=== PATIENT | male | born 1950 | race African-American/Black ===

== ENCOUNTER 2016-09-11 10:06 | Inpatient (IN) | payer MEDICARE ==
[~2016-09-11] VITALS: Ht 177.8 cm; Wt 93.9 kg
[~2016-09-11 10:06] MED LIST: AMLO5TAB2 PO; BENA20TA2 PO; CLON0.1T PO; HYDR-3240 PO; INSU100C SQ-INSULIN; LEVEMIR; METF10002 PO; METO25TA35 PO; SIMV5TAB5 PO; SITA25TA PO; SUMA25TA3 PO; TRIA50CA PO
[2016-09-11] MEDS ORDERED: SODIUM CHLORIDE 0.9% 1,000 ML IV ONE (10:45)
[2016-09-11] MEDS ORDERED: SODIUM CHLORIDE 0.9% 1,000ML IVBOLUS ONE (11:00)
[2016-09-11] MEDS ORDERED: SODIUM CHLORIDE FLUSH 10ML SYR IVF ONE (11:00)
[2016-09-11] MEDS ORDERED: ACETAMINOPHEN 500 MG TABLET PO ONE (11:00)
[2016-09-11] MEDS ORDERED: ACETAMINOPHEN 500 MG TABLET ONE (11:00)
[2016-09-11 11:13] LABS: HEMATOCRIT 43.3 % (39.2-51.8); HEMOGLOBIN 14.3 g/dL (13.7-18.0); WHITE BLOOD COUNT 12.3 x10^3/uL (3.4-10)
[2016-09-11 11:22] LABS: RAPID INFLUENZA A Negative (Negative); RAPID INFLUENZA B Negative (Negative)
[2016-09-11 11:30] LABS: ASPARTATE AMINO TRANSFERASE 22 U/L (15-37); BLOOD UREA NITROGEN 15 mg/dL (7-18)
[2016-09-11 12:36] LABS: GLUCOSE, CSF 97 mg/dL (40-80)
[2016-09-11] MEDS ORDERED: OMNIPAQUE 350 MG/ML, 100ML BOTTLE ONE (12:38)
[2016-09-11 13:10] LABS: PATH.CAST-FLAG NOT PRESENT; SPERM-FLAG NOT PRESENT; SRC-FLAG NOT PRESENT; XTAL-FLAG NOT PRESENT; YLC-FLAG NOT PRESENT
[2016-09-11] MEDS ORDERED: SITA100T PO (14:30)
[2016-09-11] MEDS ORDERED: INSU100V13 SQ (14:30)
[2016-09-11] MEDS ORDERED: AMLO5TAB2 PO (14:30)
[2016-09-11] MEDS ORDERED: SODIUM CHLORIDE FLUSH 10ML SYR IVF PRN (14:30)
[2016-09-11] MEDS ORDERED: TRIA1CAP3 PO (14:30)
[2016-09-11] MEDS ORDERED: SIMV10TA3 PO (14:30)
[2016-09-11] MEDS ORDERED: INSU100I11 SQ (14:30)
[2016-09-11] MEDS ORDERED: SODIUM CHLORIDE 0.9% 1,000 ML IV SCH (15:13)
[2016-09-11] MEDS ORDERED: ONDANSETRON 2MG/ML, 2ML IVPush PRN (15:30)
[2016-09-11] MEDS ORDERED: LORazepam 2 MG/ML, 1ML IVPush PRN (15:30)
[2016-09-11] MEDS ORDERED: HYDROcodone/APAP 5/325 TABLET PO PRN (15:30)
[2016-09-11] MEDS ORDERED: morphine SULFATE 10 MG/ML, 1ML IVPush PRN (15:30)
[2016-09-11] MEDS ORDERED: DEXTROSE 50%, 50ML SYRINGE IVPush PRN (15:30)
[2016-09-11] MEDS ORDERED: DOCUSATE 100 MG CAPSULE PO PRN (15:30)
[2016-09-11] MEDS ORDERED: GLUCAGON 1 MG IM PRN (15:30)
[2016-09-11] MEDS ORDERED: DEXTROSE 4 GM TAB.CHEW PO PRN (15:30)
[2016-09-11] MEDS: INSULIN ASPART 100 UNITS/ML, PEN SQ-INSULIN SCH ×3 (16:00→22:36)
[2016-09-11] MEDS: HYDROcodone/APAP 5/325 TABLET PO PRN ×2 (18:14→22:46)
[2016-09-11 18:15] VITALS: BP 166/84
[2016-09-11 21:57] VITALS: BP 169/87
[2016-09-11] MEDS: SIMVASTATIN 10 MG TABLET PO SCH (22:34)
[2016-09-11] MEDS: METOPROLOL TARTRATE 25 MG TABLET PO SCH (22:35)
[2016-09-11] MEDS: INSULIN DETEMIR 100 UNITS/ML, PEN SQ-INSULIN SCH (22:35)
[2016-09-11] MEDS: BENAZEPRIL 20 MG TABLET PO SCH (22:36)
[2016-09-11] MEDS: SODIUM CHLORIDE FLUSH 10ML SYR IVF SCH (22:37)
[2016-09-12 02:00] VITALS: BP 163/70
[2016-09-12 05:33] LABS: HEMOGLOBIN 14.1 g/dL (13.7-18.0); WHITE BLOOD COUNT 11.2 x10^3/uL (3.4-10)
[2016-09-12 05:57] LABS: ASPARTATE AMINO TRANSFERASE 29 U/L (15-37); BLOOD UREA NITROGEN 12 mg/dL (7-18)
[2016-09-12 06:09] LABS: DIFF TOTAL CELLS COUNTED 100 CELL DIFF
[2016-09-12 06:11] LABS: VERIFY COUNTS? YES
[2016-09-12] MEDS: ACETAMINOPHEN 325 MG TABLET PO PRN (06:29)
[2016-09-12] MEDS: INSULIN ASPART 100 UNITS/ML, PEN SQ-INSULIN SCH ×6 (07:00→20:59)
[2016-09-12 07:14] VITALS: BP 182/90
[2016-09-12] MEDS: hydrALAzine 20 MG/ML, 1ML IVPush PRN (07:23)
[2016-09-12] MEDS: AMLODIPINE 5 MG TABLET PO SCH ×2 (09:00→09:18)
[2016-09-12] MEDS: SODIUM CHLORIDE FLUSH 10ML SYR IVF SCH ×2 (09:18→20:55)
[2016-09-12] MEDS: BENAZEPRIL 20 MG TABLET PO SCH ×2 (09:18→20:54)
[2016-09-12] MEDS: METOPROLOL TARTRATE 25 MG TABLET PO SCH ×2 (09:18→20:54)
[2016-09-12] MEDS ORDERED: AMOXICILLIN 500 MG CAPSULE PO SCH (09:30)
[2016-09-12] MEDS: CEFTRIAXONE PMX 2GM/50ML 50 ML IV SCH (11:01)
[2016-09-12] MEDS: KETOROLAC 30 MG/1 ML IVPush PRN (11:01)
[2016-09-12] MEDS: HYDROcodone/APAP 5/325 TABLET PO PRN ×2 (14:28→20:54)
[2016-09-12 14:34] VITALS: BP 161/80
[2016-09-12 19:37] VITALS: BP 191/91
[2016-09-12] MEDS: SIMVASTATIN 10 MG TABLET PO SCH (20:54)
[2016-09-12] MEDS: INSULIN DETEMIR 100 UNITS/ML, PEN SQ-INSULIN SCH (20:58)
[2016-09-12 21:02] VITALS: BP 166/91
[2016-09-13 02:37] VITALS: BP 178/95
[2016-09-13] MEDS: ACETAMINOPHEN 325 MG TABLET PO PRN ×2 (03:15→12:02)
[2016-09-13] MEDS: hydrALAzine 20 MG/ML, 1ML IVPush PRN ×2 (03:17→08:47)
[2016-09-13 05:15] LABS: HEMATOCRIT 45.3 % (39.2-51.8); HEMOGLOBIN 15.1 g/dL (13.7-18.0); WHITE BLOOD COUNT 8.8 x10^3/uL (3.4-10)
[2016-09-13 05:18] LABS: BLOOD UREA NITROGEN 13 mg/dL (7-18)
[2016-09-13] MEDS: HYDROcodone/APAP 5/325 TABLET PO PRN (07:16)
[2016-09-13] MEDS ORDERED: POTASSIUM CHLORIDE 20 MEQ TAB.ER.PRT PO ONE ×2 (07:30→09:00)
[2016-09-13 07:48] VITALS: BP 163/106
[2016-09-13] MEDS: CEFTRIAXONE PMX 2GM/50ML 50 ML IV SCH (08:46)
[2016-09-13] MEDS: INSULIN ASPART 100 UNITS/ML, PEN SQ-INSULIN SCH ×2 (08:47→11:25)
[2016-09-13] MEDS: METOPROLOL TARTRATE 25 MG TABLET PO SCH (08:48)
[2016-09-13] MEDS: SODIUM CHLORIDE FLUSH 10ML SYR IVF SCH (08:48)
[2016-09-13] MEDS: BENAZEPRIL 20 MG TABLET PO SCH (08:48)
[2016-09-13] MEDS ORDERED: AMOX500T PO (08:50)
[2016-09-13] MEDS ORDERED: HYDR-3240 PO (09:05)
[2016-09-13] MEDS ORDERED: DIPHENHYDRAMINE 25 MG CAPSULE PO PRN (12:00)
[2016-09-13] MEDS: KETOROLAC 30 MG/1 ML IVPush PRN (12:11)
== END 2016-09-13 14:15 | disposition home or self-care (01) | DRG 152 ==
LOC: ED 10:27 → EDIP 14:11 → 3NE 16:08
PROVIDERS: ADMIT Internal Medicine; ATTEND Internal Medicine
PROC: 009U3ZX Drainage of Spinal Canal, Percutaneous Approach, Diagnostic (ICD-10-PCS; principal; 2016-09-11)
DX: J02.0 Streptococcal pharyngitis (principal); N17.0 Acute kidney failure with tubular necrosis; I11.9 Hypertensive heart disease without heart failure; E78.5 Hyperlipidemia, unspecified; E11.9 Type 2 diabetes mellitus without complications; E86.9 Volume depletion, unspecified; R19.7 Diarrhea, unspecified; M54.5 Low back pain; J47.9 Bronchiectasis, uncomplicated; M43.6 Torticollis; N40.0 Benign prostatic hyperplasia without lower urinary tract symptoms; Z79.4 Long term (current) use of insulin; Z82.3 Family history of stroke; Z82.49 Family history of ischemic heart disease and other diseases of the circulatory system; Z83.3 Family history of diabetes mellitus; Z88.6 Allergy status to analgesic agent
CPT/HCPCS: 36415; 62270; 71010; 74177; 80048; 80053; 81001; 82945; 82962; 83036; 83605; 83735; 84100; 84157; 85025; 85610; 85730; 87040; 87070; 87081; 87147; 87205; 87252; 87400; 87880; 89051; 96360; 96361; J0696; J1815; J1885; Q9967; J0360; J7030; Q0163

== ENCOUNTER 2017-11-21 15:13 | Emergency (ER) | payer MEDICARE ==
[~2017-11-21] VITALS: Ht 175.3 cm; Wt 94.2 kg
[~2017-11-21 15:13] MED LIST changes: -AMLO5TAB2 PO; +AMLO5TAB7 PO; +AMOX500T PO; -BENA20TA2 PO; +BENA20TA4 PO; +INSU100I11 SQ; +INSU100V13 SQ; +SIMV10TA3 PO; +SITA100T PO; +TRIA1CAP3 PO
[2017-11-21] MEDS ORDERED: SODIUM CHLORIDE 0.9% 1,000ML IVBOLUS ONE (15:30)
[2017-11-21] MEDS ORDERED: SODIUM CHLORIDE FLUSH 10ML SYR IVF ONE (15:30)
[2017-11-21] MEDS ORDERED: ONDANSETRON ODT 4 MG ONE (15:50)
[2017-11-21] MEDS ORDERED: MORPHINE SULFATE 4 MG/ML, 1ML ONE ×2 (15:51→17:35)
[2017-11-21 15:52] LABS: BASOPHILS # (AUTO) 0.04 x10^3/uL (0-0.1); BASOPHILS % (AUTO) 1 % (0-1); EOSINOPHILS # (AUTO) 0.25 x10^3/uL (0-0.4); EOSINOPHILS % (AUTO) 3 % (1-7); LYMPHOCYTES # (AUTO) 1.91 x10^3/uL (1-3.4); LYMPHOCYTES % (AUTO) 25 % (22-44); MD NO; MEAN CORPUSCULAR HEMOGLOBIN 29.1 pg (27.5-34.5); MEAN CORPUSCULAR HGB CONC 33.6 g/dL (33.2-36.2); MEAN CORPUSCULAR VOLUME 86.6 fL (81-97); MEAN PLATELET VOLUME 9.1 fL (7.4-10.4); MONOCYTES # (AUTO) 0.69 x10^3/uL (0.2-0.8); MONOCYTES % (AUTO) 9 % (2-9); NEUTROPHILS # (AUTO) 4.72 x10^3/uL (1.8-6.8); NEUTROPHILS % (AUTO) 62 % (42-75); PLATELET COUNT 198 x10^3/uL (130-400); RED BLOOD COUNT 4.92 x10^6/uL (4.38-5.82); RED CELL DISTRIBUTION WIDTH 14.4 % (9.4-14.8)
[2017-11-21] MEDS: MORPHINE SULFATE 4 MG/ML, 1ML IVPush PRN ×2 (15:56→18:15)
[2017-11-21] MEDS ORDERED: ONDANSETRON ODT 4 MG PO ONE (16:00)
[2017-11-21 16:01] LABS: ALANINE AMINOTRANSFERASE 28 U/L (12-78); ALBUMIN 3.6 g/dL (3.4-5.0); ANION GAP 4 mmol/L (5-15); CALCIUM 8.7 mg/dL (8.5-10.1); CHLORIDE 104 mmol/L (98-107); CREATININE 1.15 mg/dL (0.7-1.3)
[2017-11-21 16:03] LABS: ALKALINE PHOSPHATASE 91 U/L (45-117); BILIRUBIN,TOTAL 0.5 mg/dL (0.2-1.0); TOTAL PROTEIN 7.9 g/dL (6.4-8.2)
[2017-11-21 17:59] LABS: MICROSCOPIC INDICATED
[2017-11-21 18:09] LABS: CULTURE INDICATED? NO
[2017-11-21 19:59] VITALS: BP 172/85
== END 2017-11-21 20:03 | disposition home or self-care (01) ==
LOC: ED 16:02
DX: K85.00 Idiopathic acute pancreatitis without necrosis or infection (principal); R10.13 Epigastric pain; I10 Essential (primary) hypertension; E11.9 Type 2 diabetes mellitus without complications; Z88.6 Allergy status to analgesic agent
CPT/HCPCS: 36415; 74177; 76700; 80053; 81001; 83690; 85025; 93005; 96374; 96376; 99285; J7030; Q0162

== ENCOUNTER 2017-11-22 11:29 | Emergency (ER) | payer MEDICARE ==
[~2017-11-22] VITALS: Ht 175.3 cm; Wt 93.4 kg
[2017-11-22] MEDS ORDERED: FAMOTIDINE 20 MG TABLET PO ONE (12:00)
[2017-11-22] MEDS ORDERED: FAMOTIDINE 20 MG TABLET ONE (12:02)
[2017-11-22 14:34] VITALS: BP 148/88
== END 2017-11-22 14:35 | disposition home or self-care (01) ==
LOC: ED 13:37
DX: L50.9 Urticaria, unspecified (principal); I10 Essential (primary) hypertension; E11.9 Type 2 diabetes mellitus without complications; Z88.6 Allergy status to analgesic agent
CPT/HCPCS: 99283; J7512

== ENCOUNTER 2017-12-07 18:06 | Emergency (ER) | payer MEDICARE | END 2017-12-07 18:44 | disposition left against medical advice (07) | LOC: ED 18:42 | DX: I10 Essential (primary) hypertension (principal); Z53.21 Procedure and treatment not carried out due to patient leaving prior to being seen by health care provider ==

== ENCOUNTER 2018-03-31 19:26 | Emergency (ER) | payer MEDICARE ==
[~2018-03-31] VITALS: Ht 177.8 cm; Wt 100.2 kg
[~2018-03-31 19:26] MED LIST changes: +AMLO-150 PO; -AMLO5TAB7 PO; -BENA20TA4 PO; +BENA20TA54 PO; -CLON0.1T PO; +CLON0.1T22 PO; +SIMV5TAB14 PO; -SIMV5TAB5 PO
[2018-03-31 19:34] VITALS: BP 162/101
--- NOTE | 2018-03-31 19:48 | NUR ---
PT HERE WITH R SHOULDER PAIN, STATES THIS HAS BEEN HURTING FOR TWO DAYS, BELIEVES FROM SHOVELLING SNOW.
== END 2018-03-31 20:58 | disposition home or self-care (01) ==
LOC: ED 20:45
DX: M75.31 Calcific tendinitis of right shoulder (principal); M19.011 Primary osteoarthritis, right shoulder
CPT/HCPCS: 99283

== ENCOUNTER 2018-04-18 13:35 | Inpatient (IN) | payer MEDICARE ==
[~2018-04-18] VITALS: Ht 175.3 cm; Wt 93.6 kg
--- NOTE | 2018-04-18 13:54 | NUR ---
TO RM 24. BILATERAL LEG CRAMPS STARTED TODAY. MD EVALUATING PT
[2018-04-18] MEDS ORDERED: DIAZEPAM 5 MG TABLET PO ONE (14:00)
[2018-04-18] MEDS ORDERED: HYDR12.517 PO (14:01)
[2018-04-18] MEDS ORDERED: DIAZEPAM 5 MG TABLET ONE (14:06)
[2018-04-18 14:26] LABS: BASOPHILS # (AUTO) 0.03 x10^3/uL (0-0.1); BASOPHILS % (AUTO) 0 % (0-1); EOSINOPHILS # (AUTO) 0.04 x10^3/uL (0-0.4); EOSINOPHILS % (AUTO) 0 % (1-7); LYMPHOCYTES # (AUTO) 1.47 x10^3/uL (1-3.4); LYMPHOCYTES % (AUTO) 17 % (22-44); MD NO; MEAN CORPUSCULAR HEMOGLOBIN 28.8 pg (27.5-34.5); MEAN CORPUSCULAR HGB CONC 33.3 g/dL (33.2-36.2); MEAN CORPUSCULAR VOLUME 86.5 fL (81-97); MEAN PLATELET VOLUME 8.7 fL (7.4-10.4); MONOCYTES # (AUTO) 0.77 x10^3/uL (0.2-0.8); MONOCYTES % (AUTO) 9 % (2-9); NEUTROPHILS # (AUTO) 6.54 x10^3/uL (1.8-6.8); NEUTROPHILS % (AUTO) 74 % (42-75); PLATELET COUNT 203 x10^3/uL (130-400); RED BLOOD COUNT 5.47 x10^6/uL (4.38-5.82); RED CELL DISTRIBUTION WIDTH 15.4 % (9.4-14.8)
[2018-04-18 14:34] LABS: ALBUMIN 3.9 g/dL (3.4-5.0); ANION GAP 5 mmol/L (5-15); CALCIUM 8.7 mg/dL (8.5-10.1); CHLORIDE 104 mmol/L (98-107); CREATININE 1.22 mg/dL (0.7-1.3)
--- NOTE | 2018-04-18 14:51 | NUR ---
TASK RN: PTS BP IS ELEVATED AT THIS TIME, MD NOTIFIED OF MANUAL BP. PT GIVEN 0.1MG CLONIDINE PO.
[2018-04-18] MEDS ORDERED: LABETALOL 5MG/ML, 20ML IVPush ONE (15:30)
--- NOTE | 2018-04-18 15:47 | NUR ---
STATES PT SAYS HE HAS HAD INTERMITTENT CP THE LAST FEW WEEKS. EKG DONE AND IV ESTABLISHED FOR ANTIHYPERTENSIVE. LABETOLOL REQUESTED FROM PHARMACY
--- NOTE | 2018-04-18 16:09 | NUR ---
MEDICATED WITH LABETOLOL. PT C/O RIGHT LEG AND BACK CRAMPING. RUBBED LEG IN ATTEMPT TO PROVIDE RELIEF
[2018-04-18 16:28] LABS: TROPONIN I < 0.015 ng/mL (0.000-0.045)
[2018-04-18] MEDS ORDERED: LABETALOL 5MG/ML, 20ML IVPush STA (16:58)
[2018-04-18] MEDS ORDERED: ZOLPIDEM 5MG TABLET PO PRN (17:30)
[2018-04-18] MEDS ORDERED: POLYETHYLENE GLYCOL 17 GM PACKET PO PRN (17:30)
[2018-04-18] MEDS ORDERED: ONDANSETRON 2MG/ML, 2ML IVPush PRN (17:30)
[2018-04-18] MEDS ORDERED: ONDANSETRON ODT 4 MG PO PRN (17:30)
[2018-04-18] MEDS ORDERED: ENALAPRILAT 1.25 MG/ML, 2ML IVPush PRN (17:30)
[2018-04-18] MEDS ORDERED: HYDROcodone/APAP 5/325 TABLET PO PRN (17:30)
[2018-04-18] MEDS ORDERED: BISACODYL 10 MG SUPP PR PRN (17:30)
[2018-04-18] MEDS ORDERED: LABETALOL 5MG/ML, 20ML IVPush PRN (17:30)
[2018-04-18] MEDS ORDERED: BACLOFEN 10 MG TABLET PO PRN (17:30)
[2018-04-18] MEDS ORDERED: ACETAMINOPHEN 325 MG TABLET PO PRN (17:30)
[2018-04-18] MEDS ORDERED: DOCUSATE 100 MG CAPSULE PO PRN (17:30)
--- NOTE | 2018-04-18 17:42 | NUR ---
RPT TO JJ DYKES. MADE AWARE OF CURRENT BP. JJ CONTACTED HOSPITALIST TO MAKE CERTAIN OK FOR TELE. JJ HARRISON MD STATES OK TO GO TO TELE.
[2018-04-18 17:46] LABS: HCT (SEDRATE) 47.9 % (39.2-51.8)
[2018-04-18 18:01] LABS: FREE T4 (FREE THYROXINE) 0.83 ng/dL (0.76-1.46); TROPONIN I < 0.015 ng/mL (0.000-0.045)
[2018-04-18 18:34] LABS: HEMOGLOBIN A1C 8.9 % (4.2-6.3)
[2018-04-18 18:45] VITALS: BP 175/115
[2018-04-18] MEDS: morphine SULFATE 10 MG/ML, 1ML IVPush PRN ×2 (18:47→22:00)
[2018-04-18 20:23] VITALS: BP 177/104
[2018-04-18] MEDS ORDERED: SIMVASTATIN 5 MG TABLET ONE (20:26)
[2018-04-18] MEDS: hydrALAzine 20 MG/ML, 1ML IVPush PRN (20:30)
[2018-04-18] MEDS: INSULIN LISPRO 100 UNITS/ML, PEN SQ-INSULIN SCH (21:25)
[2018-04-18] MEDS: ENOXAPARIN 40 MG/0.4 ML SQ SCH (21:25)
[2018-04-18] MEDS: INSULIN GLARGINE 100 UNITS/ML, PEN SQ-INSULIN SCH (21:25)
[2018-04-18] MEDS: SIMVASTATIN 10 MG TABLET PO SCH (21:26)
[2018-04-18] MEDS: METOPROLOL TARTRATE 25 MG TABLET PO SCH (21:26)
[2018-04-18] MEDS: BENAZEPRIL 20 MG TABLET PO SCH (21:26)
[2018-04-18 23:19] LABS: TROPONIN I < 0.015 ng/mL (0.000-0.045)
[2018-04-19 02:20] VITALS: BP 177/96
[2018-04-19] MEDS: hydrALAzine 20 MG/ML, 1ML IVPush PRN (02:36)
[2018-04-19 03:23] VITALS: BP 166/94
[2018-04-19 05:51] LABS: ANION GAP 7 mmol/L (5-15); CALCIUM 8.5 mg/dL (8.5-10.1); CHLORIDE 105 mmol/L (98-107)
[2018-04-19 05:57] LABS: CHOL/HDL RATIO 3.3; CHOLESTEROL, TOTAL 167 mg/dL (140-239); CREATININE 1.04 mg/dL (0.7-1.3); HDL CHOL % 30 % (26-37); HDL CHOLESTEROL (DIRECT) 50 mg/dL (40-60); LDL CHOLESTEROL,CALCULATED 87 mg/dL (54-169); LDL/HDL RATIO 1.7 (0.5-3.0); TRIGLYCERIDES 151 mg/dL (50-200); VLDL CHOLESTEROL 30 mg/dL (0-25)
[2018-04-19 06:03] LABS: BASOPHILS # (AUTO) 0.03 x10^3/uL (0-0.1); BASOPHILS % (AUTO) 0 % (0-1); EOSINOPHILS # (AUTO) 0.05 x10^3/uL (0-0.4); EOSINOPHILS % (AUTO) 1 % (1-7); LYMPHOCYTES # (AUTO) 2.17 x10^3/uL (1-3.4); LYMPHOCYTES % (AUTO) 21 % (22-44); MD NO; MEAN CORPUSCULAR HEMOGLOBIN 29.1 pg (27.5-34.5); MEAN CORPUSCULAR HGB CONC 33.2 g/dL (33.2-36.2); MEAN CORPUSCULAR VOLUME 87.5 fL (81-97); MEAN PLATELET VOLUME 8.9 fL (7.4-10.4); MONOCYTES # (AUTO) 0.67 x10^3/uL (0.2-0.8); MONOCYTES % (AUTO) 7 % (2-9); NEUTROPHILS # (AUTO) 7.44 x10^3/uL (1.8-6.8); NEUTROPHILS % (AUTO) 72 % (42-75); PLATELET COUNT 203 x10^3/uL (130-400); RED BLOOD COUNT 5.58 x10^6/uL (4.38-5.82); RED CELL DISTRIBUTION WIDTH 15.3 % (9.4-14.8)
[2018-04-19 07:30] VITALS: BP 179/105
[2018-04-19] MEDS: PANTOPROZOLE 40MG TABLET PO SCH (08:19)
[2018-04-19] MEDS: METOPROLOL TARTRATE 25 MG TABLET PO SCH ×2 (08:19→20:30)
[2018-04-19] MEDS: BENAZEPRIL 20 MG TABLET PO SCH ×2 (08:20→20:29)
[2018-04-19] MEDS: HYDROCHLOROTHIAZIDE 12.5 MG CAPSULE PO SCH (08:20)
[2018-04-19] MEDS: AMLODIPINE 5 MG TABLET PO SCH (08:20)
[2018-04-19] MEDS ORDERED: REGADENOSON 0.4 MG/5 ML SYRINGE ONE (09:01)
[2018-04-19] MEDS: metFORMIN 500 MG TABLET PO SCH ×2 (12:38→17:47)
[2018-04-19] MEDS: INSULIN LISPRO 100 UNITS/ML, PEN SQ-INSULIN SCH ×2 (12:38→20:31)
[2018-04-19] MEDS: LINAGLIPTIN 5 MG TAB PO SCH (12:38)
[2018-04-19 13:54] VITALS: BP 177/88
[2018-04-19] MEDS ORDERED: SIMVASTATIN 5 MG TABLET ONE (20:10)
[2018-04-19 20:26] VITALS: BP 162/94
[2018-04-19] MEDS: ENOXAPARIN 40 MG/0.4 ML SQ SCH (20:30)
[2018-04-19] MEDS: SIMVASTATIN 10 MG TABLET PO SCH (20:30)
[2018-04-19] MEDS: INSULIN GLARGINE 100 UNITS/ML, PEN SQ-INSULIN SCH (20:32)
[2018-04-20 02:45] VITALS: BP 155/88
[2018-04-20 06:05] LABS: BASOPHILS # (AUTO) 0.03 x10^3/uL (0-0.1); BASOPHILS % (AUTO) 0 % (0-1); EOSINOPHILS # (AUTO) 0.05 x10^3/uL (0-0.4); EOSINOPHILS % (AUTO) 1 % (1-7); LYMPHOCYTES # (AUTO) 2.28 x10^3/uL (1-3.4); LYMPHOCYTES % (AUTO) 25 % (22-44); MD NO; MEAN CORPUSCULAR HEMOGLOBIN 29.3 pg (27.5-34.5); MEAN CORPUSCULAR HGB CONC 33.7 g/dL (33.2-36.2); MEAN CORPUSCULAR VOLUME 86.9 fL (81-97); MEAN PLATELET VOLUME 8.6 fL (7.4-10.4); MONOCYTES # (AUTO) 0.71 x10^3/uL (0.2-0.8); MONOCYTES % (AUTO) 8 % (2-9); NEUTROPHILS # (AUTO) 6.27 x10^3/uL (1.8-6.8); NEUTROPHILS % (AUTO) 67 % (42-75); PLATELET COUNT 194 x10^3/uL (130-400); RED BLOOD COUNT 5.28 x10^6/uL (4.38-5.82); RED CELL DISTRIBUTION WIDTH 15.4 % (9.4-14.8)
[2018-04-20 06:19] LABS: CALCIUM 8.2 mg/dL (8.5-10.1); CHLORIDE 104 mmol/L (98-107)
[2018-04-20 06:23] LABS: CREATININE 1.18 mg/dL (0.7-1.3)
[2018-04-20 06:57] LABS: ANION GAP 8 mmol/L (5-15)
[2018-04-20] MEDS: PANTOPROZOLE 40MG TABLET PO SCH (08:08)
[2018-04-20 09:25] VITALS: BP 155/90
[2018-04-20] MEDS: HYDROCHLOROTHIAZIDE 12.5 MG CAPSULE PO SCH (09:36)
[2018-04-20] MEDS: METOPROLOL TARTRATE 25 MG TABLET PO SCH (09:36)
[2018-04-20] MEDS: metFORMIN 500 MG TABLET PO SCH ×2 (09:36→17:10)
[2018-04-20] MEDS: INSULIN LISPRO 100 UNITS/ML, PEN SQ-INSULIN SCH (09:36)
[2018-04-20] MEDS: AMLODIPINE 5 MG TABLET PO SCH (09:37)
[2018-04-20] MEDS: BENAZEPRIL 20 MG TABLET PO SCH (09:37)
[2018-04-20] MEDS: LINAGLIPTIN 5 MG TAB PO SCH (09:37)
[2018-04-20 13:27] VITALS: BP 154/90
[2018-04-20 13:30] VITALS: BP 147/90
[2018-04-20] MEDS ORDERED: HYDR-3343 PO (17:43)
[2018-04-20] MEDS ORDERED: ACET325T14 PO (17:43)
== END 2018-04-20 18:30 | disposition home or self-care (01) | DRG 313 ==
LOC: ED 16:25 → EDIP 16:51 → 5SO 18:18
PROVIDERS: ADMIT Hospitalist; ATTEND Hospitalist
DX: R07.89 Other chest pain (principal); M79.604 Pain in right leg; E11.9 Type 2 diabetes mellitus without complications; I10 Essential (primary) hypertension; Z82.49 Family history of ischemic heart disease and other diseases of the circulatory system; Z83.3 Family history of diabetes mellitus; Z88.6 Allergy status to analgesic agent; Z91.048 Other nonmedicinal substance allergy status; M79.605 Pain in left leg
CPT/HCPCS: 0399T; 36415; 71045; 78452; 80048; 80061; 82040; 82962; 83036; 84439; 84443; 84484; 85025; 85651; 93005; 93017; 93306; 96374; 99285; G0378; J1650; J2785; A9502; C9898; J0360; J1815; J2270

== ENCOUNTER 2018-08-13 17:47 | Emergency (ER) | payer MEDICARE ==
[~2018-08-13] VITALS: Ht 175.3 cm; Wt 55.9 kg
[~2018-08-13 17:47] MED LIST changes: +ACET325T14 PO; +HYDR-3343 PO; +HYDR12.517 PO
[2018-08-13 18:22] VITALS: BP 185/95
[2018-08-13] MEDS ORDERED: HYDROcodone/APAP 5/325 TABLET ONE (19:12)
[2018-08-13] MEDS ORDERED: HYDROcodone/APAP 5/325 TABLET PO ONE (19:30)
== END 2018-08-13 19:47 | disposition home or self-care (01) ==
LOC: ED 18:58
DX: S40.011A Contusion of right shoulder, initial encounter (principal); M19.90 Unspecified osteoarthritis, unspecified site; I10 Essential (primary) hypertension; E11.9 Type 2 diabetes mellitus without complications; V29.88XA Motorcycle rider (driver) (passenger) injured in other specified transport accidents, initial encounter; Y93.89 Activity, other specified; Y92.410 Unspecified street and highway as the place of occurrence of the external cause; Y99.8 Other external cause status
CPT/HCPCS: 99283

== ENCOUNTER 2019-01-13 17:57 | Emergency (ER) | payer MEDICARE ==
[~2019-01-13] VITALS: Ht 177.8 cm; Wt 96.2 kg
[~2019-01-13 17:57] MED LIST changes: +ATOR40TA78 PO
--- NOTE | 2019-01-13 18:28 | NUR ---
PT C/O RLQ STABBING PAIN X2 WEEKS FOLLOWING YARD WORK THE DAY BEFORE. PT STATES PAIN DECREASES WHEN PT RESTS. PAIN HAS PROGRESSIVELY GOTTEN WORSE AND SEVERE PAIN TODAY WHILE AT WORK. LAST TIME EATEN 1630. CONNECTED TO MONITORING. CALL LIGHT IN REACH. AWAITING ORDERS AT THIS TIME.
--- NOTE | 2019-01-13 18:47 | NUR ---
PT AMBULATED TO RESTROOM WITH STEADY GAIT TO PROVIDE URINE SAMPLE. UA COLLECTED AND SENT TO LAB. LAB AT BEDSIDE.
[2019-01-13 19:04] LABS: BASOPHILS # (AUTO) 0.06 x10^3/uL (0-0.1); BASOPHILS % (AUTO) 1 % (0-1); EOSINOPHILS # (AUTO) 0.11 x10^3/uL (0-0.4); EOSINOPHILS % (AUTO) 2 % (1-7); LYMPHOCYTES # (AUTO) 1.97 x10^3/uL (1-3.4); LYMPHOCYTES % (AUTO) 28 % (22-44); MD NO; MEAN CORPUSCULAR HGB CONC 32.6 g/dL (33.2-36.2); MEAN CORPUSCULAR VOLUME 89.2 fL (81-97); MEAN PLATELET VOLUME 9.3 fL (7.4-10.4); MONOCYTES # (AUTO) 0.62 x10^3/uL (0.2-0.8); MONOCYTES % (AUTO) 9 % (2-9); NEUTROPHILS # (AUTO) 4.39 x10^3/uL (1.8-6.8); NEUTROPHILS % (AUTO) 61 % (42-75); PLATELET COUNT 213 x10^3/uL (130-400); RED BLOOD COUNT 4.85 x10^6/uL (4.38-5.82); RED CELL DISTRIBUTION WIDTH 14.9 % (9.4-14.8)
[2019-01-13 19:12] LABS: ALANINE AMINOTRANSFERASE 50 U/L (12-78); ALBUMIN 3.6 g/dL (3.4-5.0); ANION GAP 8 mmol/L (5-15); CALCIUM 8.9 mg/dL (8.5-10.1); CHLORIDE 103 mmol/L (98-107); CREATININE 1.45 mg/dL (0.7-1.3)
[2019-01-13 19:15] LABS: ALKALINE PHOSPHATASE 73 U/L (45-117); BILIRUBIN,TOTAL 0.4 mg/dL (0.2-1.0); TOTAL PROTEIN 7.4 g/dL (6.4-8.2)
[2019-01-13 19:21] LABS: MICROSCOPIC AUTO
[2019-01-13 19:28] LABS: CULTURE INDICATED? NO
--- NOTE | 2019-01-13 19:44 | NUR ---
PT TO CT VIA [facility].
[2019-01-13] MEDS ORDERED: SODIUM CHLORIDE FLUSH 10ML SYR IVF ONE (20:00)
--- NOTE | 2019-01-13 20:24 | NUR ---
BP 190/92. PT STATES HE USUALLY TAKES SEVERAL MEDS FOR BP IN THE EVENING. ERP NOTIFIED.
--- NOTE | 2019-01-13 20:37 | NUR ---
ERP AT FOR RECHECK NOW.
[2019-01-13] MEDS ORDERED: OXYcodone/APAP 5/325MG TABLET ONE (20:51)
[2019-01-13 20:56] VITALS: BP 188/110
[2019-01-13] MEDS ORDERED: OXYcodone/APAP 5/325MG TABLET PO ONE (21:00)
--- NOTE | 2019-01-13 21:04 | NUR ---
PT MEDICATED PER ORDERS. STATES HIS WILL PICK HIM UP. Addendum: 01/13/19 at 2105 by DICKSONON D/C INSTRUCTIONS, MEDS & F/U APPT RV'WD WITH PT. RX GIVEN X1. COPY OF CT RESULT PROVIDED TO PT.
== END 2019-01-13 21:12 | disposition home or self-care (01) ==
LOC: ED 18:16
DX: S39.013A Strain of muscle, fascia and tendon of pelvis, initial encounter (principal); E11.9 Type 2 diabetes mellitus without complications; I10 Essential (primary) hypertension; M19.90 Unspecified osteoarthritis, unspecified site; Z87.891 Personal history of nicotine dependence; X50.9XXA Other and unspecified overexertion or strenuous movements or postures, initial encounter; Y93.89 Activity, other specified; Y92.89 Other specified places as the place of occurrence of the external cause; Y99.8 Other external cause status
CPT/HCPCS: 36415; 74176; 80053; 81001; 83690; 85025; 99284

== ENCOUNTER 2019-02-10 16:26 | Emergency (ER) | payer MEDICARE ==
[~2019-02-10] VITALS: Ht 175.3 cm; Wt 96.1 kg
[2019-02-10 16:27] VITALS: BP 171/87
--- NOTE | 2019-02-10 18:06 | NUR ---
Informed by Jo from Registration that patient approached the Registration window and stated "Bye I am leaving." Registration attempted to have patient sign AMA form and patient refused and walked out of the ED.
--- NOTE | 2019-02-10 18:07 | NUR ---
CALL CENTER OPERATIONS MANAGER: PT INFORMED ADMITTING THAT HE WAS LEAVING AND REFUSED TO SIGN AMA FORM
--- NOTE | 2019-02-10 18:14 | NUR ---
Ash sprague in [facility] - 02/10/19 at 1817 by JILLIAN PENSION ADVISER: PT AMBULATORY TO ROOM FROM [place]
== END 2019-02-10 18:18 | disposition left against medical advice (07) ==
LOC: ED 18:07
DX: K46.9 Unspecified abdominal hernia without obstruction or gangrene (principal); Z53.21 Procedure and treatment not carried out due to patient leaving prior to being seen by health care provider

== ENCOUNTER → 2019-03-13 | Outpatient (CLI) | payer MEDICARE ==
[~2019-03-13] MED LIST changes: +SIMV10TA18 PO; -SIMV10TA3 PO
== END | disposition home or self-care (01) ==
LOC: CFH 11:35
PROVIDERS: ATTEND Internal Medicine
DX: J47.9 Bronchiectasis, uncomplicated (principal)
CPT/HCPCS: 71250

== ENCOUNTER 2019-07-26 17:49 | Emergency (ER) | payer MEDICARE ==
[~2019-07-26] VITALS: Ht 177.8 cm; Wt 96.8 kg
--- NOTE | 2019-07-26 18:18 | NUR ---
Assumed care of patient. C/O stabbing non radiating left sided CP. NAD. Denies SOB, palpitations, dizziness. IV started. EKG and repeat EKG done. Placed on NIBP, pulse ox and vehicle monitor technician. Will continue to monitor.
[2019-07-26] MEDS ORDERED: SODIUM CHLORIDE FLUSH 10ML SYR IVF ONE (18:30)
[2019-07-26 18:32] LABS: BASOPHILS # (AUTO) 0.03 x10^3/uL (0-0.1); BASOPHILS % (AUTO) 0 % (0-1); EOSINOPHILS # (AUTO) 0.16 x10^3/uL (0-0.4); EOSINOPHILS % (AUTO) 2 % (1-7); LYMPHOCYTES # (AUTO) 1.55 x10^3/uL (1-3.4); LYMPHOCYTES % (AUTO) 22 % (22-44); MD NO; MEAN CORPUSCULAR HEMOGLOBIN 28.6 pg (27.5-34.5); MEAN CORPUSCULAR HGB CONC 32.9 g/dL (33.2-36.2); MEAN CORPUSCULAR VOLUME 86.8 fL (81-97); MEAN PLATELET VOLUME 9.3 fL (7.4-10.4); MONOCYTES # (AUTO) 0.75 x10^3/uL (0.2-0.8); MONOCYTES % (AUTO) 10 % (2-9); NEUTROPHILS # (AUTO) 4.74 x10^3/uL (1.8-6.8); NEUTROPHILS % (AUTO) 66 % (42-75); PLATELET COUNT 199 x10^3/uL (130-400); RED BLOOD COUNT 4.82 x10^6/uL (4.38-5.82); RED CELL DISTRIBUTION WIDTH 15.2 % (9.4-14.8)
[2019-07-26] MEDS ORDERED: INSU100I40 SQ (18:36)
[2019-07-26] MEDS ORDERED: CARV-39 PO (18:36)
[2019-07-26] MEDS ORDERED: ATOR40TA78 PO (18:36)
[2019-07-26] MEDS ORDERED: HYDR-3343 PO (18:36)
[2019-07-26] MEDS ORDERED: HYDR25TA6 PO (18:36)
[2019-07-26] MEDS ORDERED: ISOS60TA36 PO (18:36)
[2019-07-26] MEDS ORDERED: SPIR25TA5 PO (18:36)
[2019-07-26 18:41] LABS: ALANINE AMINOTRANSFERASE 42 U/L (12-78); ALBUMIN 3.8 g/dL (3.4-5.0); ANION GAP 6 mmol/L (5-15); CALCIUM 8.8 mg/dL (8.5-10.1); CHLORIDE 103 mmol/L (98-107)
[2019-07-26 18:45] LABS: ALKALINE PHOSPHATASE 85 U/L (45-117); BILIRUBIN,TOTAL 0.3 mg/dL (0.2-1.0); TOTAL PROTEIN 7.8 g/dL (6.4-8.2); TROPONIN I < 0.015 ng/mL (0.000-0.045)
--- NOTE | 2019-07-26 18:52 | NUR ---
Resting in [facility]. No needs.
[2019-07-26] MEDS ORDERED: ONDANSETRON ODT 4 MG ONE (19:26)
[2019-07-26] MEDS ORDERED: ASPIRIN 81 MG TABLET CHEW ONE (19:26)
[2019-07-26 19:27] VITALS: BP 155/81
[2019-07-26] MEDS ORDERED: ASPIRIN 81 MG TABLET CHEW PO ONE (19:30)
[2019-07-26] MEDS ORDERED: ONDANSETRON ODT 4 MG PO ONE (20:00)
--- NOTE | 2019-07-26 20:08 | NUR ---
Patient/Caregiver given discharge instructions and they have confirmed that they understand the instructions. Patient ambulatory with steady gait.
== END 2019-07-26 20:10 | disposition home or self-care (01) ==
LOC: ED 19:41
DX: R07.2 Precordial pain (principal); I10 Essential (primary) hypertension; E11.9 Type 2 diabetes mellitus without complications; R94.31 Abnormal electrocardiogram [ECG] [EKG]; Z87.891 Personal history of nicotine dependence
CPT/HCPCS: 36415; 71045; 80053; 84484; 85025; 93005; 99285; Q0162

== ENCOUNTER 2019-08-29 11:54 | Emergency (ER) | payer MEDICARE ==
[~2019-08-29] VITALS: Ht 172.7 cm; Wt 95.0 kg
[~2019-08-29 11:54] MED LIST changes: +CARV-39 PO; +HYDR25TA6 PO; +INSU100I40 SQ; +ISOS60TA36 PO; +SPIR25TA5 PO
[2019-08-29 11:57] VITALS: BP 118/68
[2019-08-29] MEDS ORDERED: HYDROcodone/APAP 5/325 TABLET ONE (12:21)
--- NOTE | 2019-08-29 12:24 | NUR ---
Ultrasound at bedside medicated per emar for knee pain at 09/17
[2019-08-29] MEDS ORDERED: HYDROcodone/APAP 5/325 TABLET PO ONE (12:30)
--- NOTE | 2019-08-29 12:34 | NUR ---
xray at bedside
--- NOTE | 2019-08-29 13:20 | NUR ---
WITH REASSESSMENT PAIN IMPROVED TO 2/10 REFUSING ICE OR ROBIN WRAP
== END 2019-08-29 13:48 | disposition home or self-care (01) ==
LOC: ED 13:07
DX: M25.562 Pain in left knee (principal); I10 Essential (primary) hypertension; E11.9 Type 2 diabetes mellitus without complications; Z87.891 Personal history of nicotine dependence; M79.89 Other specified soft tissue disorders
CPT/HCPCS: 99284

== ENCOUNTER 2019-12-15 14:16 | Emergency (ER) | payer MEDICARE ==
[~2019-12-15] VITALS: Ht 175.3 cm; Wt 95.0 kg
[2019-12-15] MEDS ORDERED: SODIUM CHLORIDE FLUSH 10ML SYR IVF ONE ×2 (15:00→16:30)
[2019-12-15 15:12] LABS: BASOPHILS % (AUTO) 1 % (0-1); EOSINOPHILS % (AUTO) 1 % (1-7); LYMPHOCYTES % (AUTO) 16 % (22-44); MEAN CORPUSCULAR HEMOGLOBIN 28.6 pg (27.5-34.5); MEAN CORPUSCULAR HGB CONC 32.8 g/dL (33.2-36.2); MEAN PLATELET VOLUME 9.2 fL (7.4-10.4); MONOCYTES % (AUTO) 11 % (2-9); NEUTROPHILS % (AUTO) 71 % (42-75); PLATELET COUNT 177 x10^3/uL (130-400); RED BLOOD COUNT 5.13 x10^6/uL (4.38-5.82); RED CELL DISTRIBUTION WIDTH 14.7 % (9.4-14.8)
[2019-12-15 15:20] LABS: MD NO
[2019-12-15 15:23] LABS: ALANINE AMINOTRANSFERASE 38 U/L (12-78); ALBUMIN 3.6 g/dL (3.4-5.0); ANION GAP 6 mmol/L (5-15); CHLORIDE 108 mmol/L (98-107)
[2019-12-15 15:25] LABS: ALKALINE PHOSPHATASE 110 U/L (45-117); BILIRUBIN,TOTAL 0.5 mg/dL (0.2-1.0); TOTAL PROTEIN 7.7 g/dL (6.4-8.2)
--- NOTE | 2019-12-15 16:05 | NUR ---
TASK RN ASSISTING PRIMARY RN ESTELLE WITH PT CHECK IN. PT AMBUALTORY TO ROOM WITH STEADY GAIT, ACCOMPANIED BY SPOUSE. 69 Y/O M PRESENTS TO ER STATING "DIARRHEA ABOUT 10 TIMES IN LAST 1.5 DAYS, ALSO HAVING SOME STOMACH PAIN. THEN MY TOOTH ON THE TOP RIGHT IS HURTING ME FOR ABOUT 5 DAYS." RATES ABD PAIN /. DENIES N/V, CP, SOB, DIZZINESS, VILLALPANDO, VISUAL CHANGES, FEVER, CHILLS, OR RECENT TRAVEL OR EXPOSURE TO COVID + PERSONS. CONT PULSE OX, BP MONITORS APPLIED. VSS. CALL LIGHT IN REACH. FALL PRECAUTIONS IN PLACE. SIDE RAILS UPX2. A&OX4. PT POOR HISTORIAN WITH HOME MEDICATION NAMES, UNABLE TO COMPLETE ACCURATE MED REC. AWAITING EVAL BY ERP.
--- NOTE | 2019-12-15 16:13 | NUR ---
REPORT AND TRANSFER OF CARE TO PRIMARY RN ESTELLE AT THIS TIME.
[2019-12-15] MEDS ORDERED: SODIUM CHLORIDE 0.9% 1,000ML IVBOLUS ONE (16:30)
[2019-12-15] MEDS ORDERED: AMPICILLIN/SULBACTAM 3 GM in SODIUM CHLORIDE 0.9% 100 ML IV ONE (16:30)
[2019-12-15] MEDS ORDERED: ACETAMINOPHEN 500 MG TABLET ONE (16:35)
[2019-12-15 16:47] VITALS: BP 151/97
--- NOTE | 2019-12-15 16:58 | NUR ---
PIV PLACED, MEDICATED PER EMAR. PATIENT TO CT
--- NOTE | 2019-12-15 18:00 | NUR ---
Patient given discharge instructions and they have confirmed that they understand the instructions. Patient ambulatory with steady gait.
== END 2019-12-15 19:17 | disposition home or self-care (01) ==
LOC: ED 16:02
DX: R19.7 Diarrhea, unspecified (principal); K02.9 Dental caries, unspecified; E86.0 Dehydration; R10.32 Left lower quadrant pain; I10 Essential (primary) hypertension; E11.9 Type 2 diabetes mellitus without complications
CPT/HCPCS: 36415; 74176; 80053; 83690; 85025; 96365; 99284; J0295; J7030

== ENCOUNTER 2020-04-15 13:31 | Emergency (ER) | payer MEDICARE ==
[~2020-04-15] VITALS: Ht 177.8 cm; Wt 94.3 kg
[~2020-04-15 13:31] MED LIST changes: +HYDR-1067 PO; -HYDR-3240 PO
--- NOTE | 2020-04-15 14:13 | NUR ---
PT STATES CAME INTO ED BECAUSE OF A REALLY BAD VILLALPANDO FOR 6X DAYS, VERY FATIGUED, BLURRED VISION, AND VOMITTED A COUPLE OF DAYS AGO.
[2020-04-15] MEDS ORDERED: SODIUM CHLORIDE FLUSH 10ML SYR IVF ONE (14:30)
[2020-04-15] MEDS ORDERED: ONDANSETRON 2MG/ML, 2ML IVPush ONE (14:30)
[2020-04-15] MEDS ORDERED: MORPHINE SULFATE 4 MG/ML, 1ML IVPush ONE (14:30)
[2020-04-15] MEDS ORDERED: SODIUM CHLORIDE 0.9% 1,000ML IVBOLUS ONE (14:30)
[2020-04-15] MEDS ORDERED: MORPHINE SULFATE 4 MG/ML, 1ML ONE (14:32)
[2020-04-15] MEDS ORDERED: ONDANSETRON 2MG/ML, 2ML ONE (14:32)
[2020-04-15 14:50] LABS: BASOPHILS % (AUTO) 0 % (0-1); EOSINOPHILS % (AUTO) 2 % (1-7); LYMPHOCYTES % (AUTO) 31 % (22-44); MD NO; MEAN CORPUSCULAR HEMOGLOBIN 29.3 pg (27.5-34.5); MEAN CORPUSCULAR HGB CONC 33.9 g/dL (33.2-36.2); MEAN PLATELET VOLUME 8.1 fL (7.4-10.4); MONOCYTES % (AUTO) 13 % (2-9); NEUTROPHILS % (AUTO) 54 % (42-75); PLATELET COUNT 187 x10^3/uL (130-400); RED BLOOD COUNT 4.62 x10^6/uL (4.38-5.82); RED CELL DISTRIBUTION WIDTH 14.9 % (9.4-14.8)
--- NOTE | 2020-04-15 14:51 | NUR ---
PT OFF UNIT IN IMAGING.
[2020-04-15 15:03] LABS: ALBUMIN 3.6 g/dL (3.4-5.0); ANION GAP 7 mmol/L (5-15); CALCIUM 8.8 mg/dL (8.5-10.1); CHLORIDE 104 mmol/L (98-107)
[2020-04-15 15:06] LABS: ALANINE AMINOTRANSFERASE 35 U/L (12-78); ALKALINE PHOSPHATASE 79 U/L (45-117); BILIRUBIN,TOTAL 0.5 mg/dL (0.2-1.0); CREATININE 1.26 mg/dL (0.7-1.3); TOTAL PROTEIN 7.1 g/dL (6.4-8.2)
[2020-04-15 16:23] VITALS: BP 141/89
== END 2020-04-15 16:25 | disposition home or self-care (01) ==
LOC: ED 15:49
DX: R51.9 Headache, unspecified (principal); H57.89 Other specified disorders of eye and adnexa; R11.2 Nausea with vomiting, unspecified; R94.31 Abnormal electrocardiogram [ECG] [EKG]; I10 Essential (primary) hypertension; E11.9 Type 2 diabetes mellitus without complications; M19.90 Unspecified osteoarthritis, unspecified site; Z88.6 Allergy status to analgesic agent
CPT/HCPCS: 36415; 70450; 80053; 85025; 93005; 96361; 96374; 96375; 99285; J2270; J2405; J7030

== ENCOUNTER 2020-04-16 23:02 | Emergency (ER) | payer MEDICARE ==
[~2020-04-16] VITALS: Ht 175.3 cm; Wt 93.9 kg
[~2020-04-16 23:02] MED LIST changes: +LABETALOL 100 MG TABLET PO ONE
--- NOTE | 2020-04-16 23:34 | NUR ---
Pt to ER with c/o VILLALPANDO and double vision. Pt was seen in ER x 1 day ago, was medicated for pain, had a CT done, and was DC'd home Pt states after he left, his pain came back, and he continues to see double. Pt with no other stroke like symptoms. Equal smile, strong equal it solutions architect. Pt A&O, clear speech. Pt on monitor, warm blanket given. Will monitor.
[2020-04-16] MEDS ORDERED: MORPHINE SULFATE 4 MG/ML, 1ML ONE (23:56)
[2020-04-16] MEDS ORDERED: ONDANSETRON 2MG/ML, 2ML ONE (23:56)
[2020-04-17] LABS: BASOPHILS % (AUTO) 0 % (0-1); EOSINOPHILS % (AUTO) 2 % (1-7); LYMPHOCYTES % (AUTO) 32 % (22-44); MEAN CORPUSCULAR HEMOGLOBIN 28.9 pg (27.5-34.5); MEAN CORPUSCULAR HGB CONC 33.2 g/dL (33.2-36.2); MEAN PLATELET VOLUME 8.2 fL (7.4-10.4); MONOCYTES % (AUTO) 11 % (2-9); NEUTROPHILS % (AUTO) 55 % (42-75); PLATELET COUNT 173 x10^3/uL (130-400); RED BLOOD COUNT 4.49 x10^6/uL (4.38-5.82); RED CELL DISTRIBUTION WIDTH 14.7 % (9.4-14.8)
[2020-04-17] MEDS ORDERED: KETOROLAC 30 MG/1 ML IM ONE
[2020-04-17] MEDS ORDERED: SODIUM CHLORIDE FLUSH 10ML SYR IVF ONE
[2020-04-17] MEDS ORDERED: LORazepam 2 MG/ML, 1ML IVPush ONE
[2020-04-17] MEDS ORDERED: SODIUM CHLORIDE 0.9% 1,000ML IVBOLUS ONE
[2020-04-17] MEDS ORDERED: MORPHINE SULFATE 4 MG/ML, 1ML IVPush PRN
[2020-04-17] MEDS ORDERED: ONDANSETRON 2MG/ML, 2ML IVPush ONE
[2020-04-17] MEDS ORDERED: LORazepam 2 MG/ML, 1ML ONE
[2020-04-17] MEDS ORDERED: ONDANSETRON ODT 4 MG PO ONE
[2020-04-17 00:01] LABS: MD NO
--- NOTE | 2020-04-17 00:10 | NUR ---
IV placed. Pt medicated with ativan for MRI. health records technology teacher at bedside to take pt. MRI checklist completed by Yessica DYKES. health records technology teacher aware of ativan admin and states she will monitor pt resp status. Pt to MRI in .
[2020-04-17 00:11] LABS: ALANINE AMINOTRANSFERASE 32 U/L (12-78); ALBUMIN 3.6 g/dL (3.4-5.0); ANION GAP 6 mmol/L (5-15); CALCIUM 8.3 mg/dL (8.5-10.1); CHLORIDE 107 mmol/L (98-107); CREATININE 1.22 mg/dL (0.7-1.3)
[2020-04-17 00:13] LABS: ALKALINE PHOSPHATASE 74 U/L (45-117); BILIRUBIN,TOTAL 0.4 mg/dL (0.2-1.0); TOTAL PROTEIN 6.8 g/dL (6.4-8.2)
[2020-04-17 00:25] LABS: INTERNATIONAL NORMALIZED RATIO 1.02 (0.93-1.1); PROTHROMBIN TIME 10.9 Seconds (9.6-11.5)
--- NOTE | 2020-04-17 01:46 | NUR ---
Pt states VILLALPANDO has gone away. Pt still has double vision. Pt in room watching TV on his phone. Pt calm and apporpirate.
[2020-04-17] MEDS ORDERED: ACETAMINOPHEN 325 MG TABLET ONE (02:51)
[2020-04-17] MEDS ORDERED: ACETAMINOPHEN 325 MG TABLET PO ONE (03:00)
[2020-04-17 03:05] VITALS: BP 151/90
--- NOTE | 2020-04-17 03:06 | NUR ---
Pt medicated for VILLALPANDO. Pt IV dc'd intact. Patient/Caregiver given discharge instructions and they have confirmed that they understand the instructions. Patient ambulatory with steady gait.
== END 2020-04-17 03:08 | disposition home or self-care (01) ==
LOC: ED 04-17 03:03
DX: G43.909 Migraine, unspecified, not intractable, without status migrainosus (principal); M25.562 Pain in left knee; R42 Dizziness and giddiness; H53.2 Diplopia; R94.31 Abnormal electrocardiogram [ECG] [EKG]; I10 Essential (primary) hypertension; E11.9 Type 2 diabetes mellitus without complications; Z86.73 Personal history of transient ischemic attack (TIA), and cerebral infarction without residual deficits
CPT/HCPCS: 36415; 70551; 73564; 80053; 85025; 85610; 85730; 93005; 96361; 96374; 99284; J2060; J7030

== ENCOUNTER 2020-07-18 18:19 | Emergency (ER) | payer MEDICARE ==
[~2020-07-18] VITALS: Ht 175.3 cm; Wt 91.5 kg
[~2020-07-18 18:19] MED LIST changes: -HYDR-1067 PO; +HYDR-2214 PO; -LABETALOL 100 MG TABLET PO ONE
[2020-07-18] MEDS ORDERED: LIDOCAINE-MPF 1%, 5ML INFIL ONE (19:00)
[2020-07-18] MEDS ORDERED: DIPH,PERTUSS(ACELL),TET VAC/PF 0.5 ML IM-VACC ONE ×2 (19:00→19:30)
--- NOTE | 2020-07-18 19:36 | NUR ---
PT TO ROOM FROM LOBBY AT THIS TIME.
[2020-07-18 19:38] VITALS: BP 164/101
[2020-07-18] MEDS ORDERED: IBUPROFEN 200 MG TABLET ONE (19:40)
--- NOTE | 2020-07-18 19:50 | NUR ---
Patient given discharge instructions and they have confirmed that they understand the instructions. Patient ambulatory with steady gait.
[2020-07-18] MEDS ORDERED: IBUPROFEN 200 MG TABLET PO ONE (20:00)
== END 2020-07-18 19:52 | disposition home or self-care (01) ==
LOC: ED 19:45
DX: S61.231A Puncture wound without foreign body of left index finger without damage to nail, initial encounter (principal); S61.211A Laceration without foreign body of left index finger without damage to nail, initial encounter; X58.XXXA Exposure to other specified factors, initial encounter; Y93.89 Activity, other specified; Y92.69 Other specified industrial and construction area as the place of occurrence of the external cause; Y99.0 Civilian activity done for income or pay
CPT/HCPCS: 90471; 90715; 99283

== ENCOUNTER 2020-10-24 10:33 | Emergency (ER) | payer MEDICARE ==
[~2020-10-24] VITALS: Ht 175.3 cm; Wt 91.6 kg
--- NOTE | 2020-10-24 11:50 | NUR ---
PT HERE FOR L. SIDED FACIAL DROOP STARTING YESTERDAY MORNING. PT TO CT.
[2020-10-24 11:55] LABS: BASOPHILS % (AUTO) 1 % (0-1); EOSINOPHILS % (AUTO) 1 % (1-7); LYMPHOCYTES % (AUTO) 25 % (22-44); MEAN CORPUSCULAR HEMOGLOBIN 29.3 pg (27.5-34.5); MEAN CORPUSCULAR HGB CONC 33.3 g/dL (33.2-36.2); MEAN PLATELET VOLUME 8.3 fL (7.4-10.4); MONOCYTES % (AUTO) 15 % (2-9); NEUTROPHILS % (AUTO) 58 % (42-75); PLATELET COUNT 178 x10^3/uL (130-400); RED BLOOD COUNT 4.85 x10^6/uL (4.38-5.82); RED CELL DISTRIBUTION WIDTH 14.7 % (9.4-14.8)
[2020-10-24 12:09] LABS: ALANINE AMINOTRANSFERASE 31 U/L (12-78); ALBUMIN 3.8 g/dL (3.4-5.0); ANION GAP 8 mmol/L (5-15); CALCIUM 8.9 mg/dL (8.5-10.1); CHLORIDE 105 mmol/L (98-107); CREATININE 1.13 mg/dL (0.7-1.3)
[2020-10-24 12:14] LABS: ALKALINE PHOSPHATASE 81 U/L (45-117); BILIRUBIN,TOTAL 0.5 mg/dL (0.2-1.0); TOTAL PROTEIN 7.5 g/dL (6.4-8.2)
[2020-10-24] MEDS ORDERED: HYDROcodone/APAP 5/325 TABLET ONE (12:17)
--- NOTE | 2020-10-24 12:24 | NUR ---
pt medicated per emar. vss. nadn. dr. hopper evaluated.
[2020-10-24] MEDS ORDERED: HYDROcodone/APAP 5/325 TABLET PO ONE (12:30)
[2020-10-24 12:49] LABS: TROPONIN I < 0.015 ng/mL (0.000-0.045)
--- NOTE | 2020-10-24 13:14 | NUR ---
PT TO MRI.
[2020-10-24 14:42] LABS: MICROSCOPIC AUTO
[2020-10-24 16:09] VITALS: BP 177/109
--- NOTE | 2020-10-24 16:30 | NUR ---
Patient given discharge instructions and they have confirmed that they understand the instructions. Patient ambulatory with steady gait. NAD, all questions answered appropriately, denies additional needs at this time. No personal belongings left in room after discharge.
== END 2020-10-24 16:33 | disposition home or self-care (01) ==
LOC: ED 16:15
DX: G51.0 Bell's palsy (principal); R94.31 Abnormal electrocardiogram [ECG] [EKG]; I10 Essential (primary) hypertension; E11.9 Type 2 diabetes mellitus without complications
CPT/HCPCS: 36415; 70450; 70551; 80053; 81001; 84484; 85025; 87040; 93005; 99285